=== PATIENT | female | born 1945 | race Two or more races ===

== ENCOUNTER 2023-11-11 15:50 | Outpatient (CLI) | payer OTHER | END 2023-11-11 16:00 | disposition home or self-care (01) | LOC: SONOGRAMA 15:50 | PROVIDERS: ATTEND Pathology Anatomic Pathology & Clinical Pathology | DX: D34 Benign neoplasm of thyroid gland (principal); D44.0 Neoplasm of uncertain behavior of thyroid gland; E06.3 Autoimmune thyroiditis; E04.2 Nontoxic multinodular goiter ==